=== PATIENT | female | born 1995 | race Asian ===

== ENCOUNTER 2024-12-05 07:55 | Inpatient (IN) ==
[2024-12-05] MEDS ORDERED: METHYLERGONOVINE 0.2 MG/ML VIAL IM PRN (08:04)
[2024-12-05] MEDS ORDERED: miSOPROStoL 200 MCG TABLET PR PRN (08:04)
[2024-12-05] MEDS ORDERED: LABETALOL 20 MG/4 ML SYRINGE IVP PRN ×3 (08:04)
[2024-12-05] MEDS ORDERED: TERBUTALINE 1 MG/ML VIAL SUBQ PRN (08:04)
[2024-12-05] MEDS ORDERED: OXYTOCIN 10 UNIT/ML VIAL IM PRN (08:04)
[2024-12-05] MEDS ORDERED: TRANEXAMIC ACID IN NACL 1,000 MG/100 ML BAG IV PRN (08:04)
[2024-12-05] MEDS ORDERED: miSOPROStoL 200 MCG TABLET BC PRN (08:04)
[2024-12-05] MEDS ORDERED: SODIUM CHLORIDE FLUSH 0.9% 10 ML SYRINGE IVP PRN (08:04)
[2024-12-05] MEDS ORDERED: hydrALAZINE INJ 20 MG/ML VIAL IVP PRN (08:04)
[2024-12-05] MEDS ORDERED: fentaNYL 100 MCG/2 ML VIAL IVP PRN (08:04)
[2024-12-05] MEDS ORDERED: lidocaine 1% 20 ML MDV ID PRN (08:04)
[2024-12-05] MEDS ORDERED: NIFEdipine 10 MG CAPSULE PO PRN (08:04)
[2024-12-05 09:23] LABS: BASOPHILS % (AUTO) 0.5 %; EOSINOPHILS # (AUTO) 0.2 10^3/uL (0.0-0.7); EOSINOPHILS % (AUTO) 3.2 %; HCT - HEMATOCRIT 40.5 % (37.0-47.0); HGB - HEMOGLOBIN 13.5 g/dL (12.0-16.0); LYMPHOCYTES # (AUTO) 1.4 10^3/uL (1.5-3.5); LYMPHOCYTES % (AUTO) 22.1 %; MEAN CORPUSCULAR HEMOGLOBIN 29.4 pg (27.0-31.0); MEAN CORPUSCULAR HGB CONC 33.3 g/dL (32.0-36.0); MEAN CORPUSCULAR VOLUME 88.2 fL (81.0-99.0); MEAN PLATELET VOLUME 11.7 fL (7.9-10.8); MONOCYTES # (AUTO) 0.7 10^3/uL (0.0-1.0); MONOCYTES % (AUTO) 10.6 %; NEUTROPHILS # (AUTO) 3.9 10^3/uL (1.5-6.6); NEUTROPHILS % (AUTO) 62.8 %; PLT - PLATELET COUNT 141 10^3/uL (130-450); RED BLOOD COUNT 4.59 10^6/uL (4.20-5.40); RED CELL DISTRIBUTION WIDTH 13.5 % (12.0-15.0); WHITE BLOOD COUNT 6.2 x10^3/uL (4.8-10.8)
[2024-12-05 09:36] LABS: ALBUMIN 3.6 g/dL (3.2-5.5); ALBUMIN/GLOBULIN RATIO 1.2 (1.0-2.2); BILIRUBIN,TOTAL 0.4 mg/dL (0.2-1.0); CALCIUM 9.1 mg/dL (8.5-10.3); CREATININE 0.4 mg/dL (0.6-1.3); POTASSIUM 3.9 mmol/L (3.5-4.5); TOTAL PROTEIN 6.7 g/dL (6.4-8.9)
[2024-12-05] MEDS: AMPICILLIN 2 GM in SODIUM CHLORIDE 0.9% MINIBAG 100 ML IV ONE (09:39)
[2024-12-05] MEDS: LACTATED RINGERS 1,000 ML IV PRN (09:40)
--- NOTE | 2024-12-05 09:59 | HISTORY & PHYSICAL EXAMINATION ---
Admit History Smoking Status: Never smoker Other Maternal History Other Maternal History: Patient is a 29-year-old G2, P1 at 39 weeks 6 days gestation presenting for induction of labor at term. No contractions.. She has good movement. Denies loss of fluid. No YOUNG/BV or RUQP. No vaginal bleeding. Denies nausea and vomiting. Denies urinary urgency or dysuria. All other symptoms reviewed and were negative except per HPI. Course LMP: 03/01/24 KELSY by LMP: 12/06/24 US: formal US pending. Measured 12w0d in clinic on 05/22, c/w dating by LMP. Formal US 06/04, 13w5d. 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 They live with his parents. Have a daughter, Olga born 01/2022 in [place]. this baby is a boy. likely to be named Nikos the 3rd. 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 Microcephaly - EFW 09/14: BPD 2%, HC 1%. Overall EFW 13%, offered induction at 39 weeks. Olga also with smaller head. Pre- Weight:153.4 BMI: 29.09 Blood type: O+ Antibody:Neg CBC:H/H/PLT 12.8/37.6/228 RUB:NOT immune VZV:Immune HBsAg: Neg HepC: Non reactive RPR/AB-EIA: non reactive HIV:non reactive PAP:02/13/19 - normal GC/CT: negative HSV: denies in self and partner Genetic testing: [id number] negative. AFP-Negative Covid: declines (vaccinated 2021) Flu: 05/22/24 FAS Placenta:Posterior w/o previa Cord:3VC TON:16cm wnl EFW:430g 41st%ile left ventricular focus discussed. 50gm OGCT: 125 TDAP:3/3 Breast Pump:3/3 RPR- non reactive 3rd trimester H/H 12.5/38.4 PLT 234 GBS:11/13- positive Meds/Allgy Home Medications Ambulatory Orders Medication Instructions Recorded Confirmed vits no.126-ferrous fum 1 tab PO QDAY 4 12/03/24 28 mg iron-folic acid 800 mcg tablet (Classic ) Allergies Allergies Allergy/AdvReac Type Severity Reaction Status Date / Time No Known Drug Allergies Allergy Verified 06/19/24 13:38 PFSH Active Problems All Active Problems (Updated 12/05/24 @ 10:01 by Toni Mason MD) 39 weeks gestation of (Acute) Encounter for induction of labor (Acute) Not immune to rubella (Acute) Encounter for supervision of other normal , second trimester (Acute) Surgical History Surgical History H/O wrist surgery Family History Family History (Updated 05/17/24 @ 07:04 by ANIL KERN LPN) Maternal grandmother High blood pressure Grandmother Diabetes Grandfather Diabetes Social History Social History (Updated 05/17/24 @ 07:06 by ANIL KERN LPN) Smoking Status: Never smoker Second hand tobacco smoke exposure: No Do you dip or chew tobacco?: No Do you vape?: No Living arrangement: At home Marital Status: Living Condition: With spouse/s.o. 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 Respiratory: Normal rate of respiration. No accessory muscle use, normal respiratory effort. Cardiovascular: Regular rate and rhythm Abdomen: Gravid, nontender, nondistended Extremities: Normal range of motion Neuro: Oriented x3. Normal movements Psych: Appropriate mood and affect. Normal judgment and insight SVE: 0/25/-3 FHT: FHT: 130 BPM baseline, moderate variability, accelerations present, no decelerations. Category 1 [place]: Occasional Plan for Labor Plan For Labor I expect patient to be DC'd or transferred within 96 hours.: Yes Conclusion/Plan Problem List (1) Encounter for induction of labor: Plan: Discussed risk, benefits, alternatives of induction of labor and she would like to proceed. Unfavorable cervix, but 1 previous vaginal delivery. Will start with cervical ripening with misoprostol. Epidural at patient's request, admit to L&D, admit labs. (2) 39 weeks gestation of : Plan: As above (3) Not immune to rubella: Plan: MMR Lab Results 12/05/24 09:00 12/05/24 09:00
[2024-12-05] MEDS: miSOPROStoL 100 MCG TABLET VG SCH (10:04)
--- NOTE | 2024-12-05 13:00 | PHARMACY PROGRESS NOTE ---
Best Possible Medication History Admit Date and Time: 12/05/24 0804 Home Medications Medication Instructions Recorded Confirmed Type vits no.126-ferrous fum 1 tab PO QDAY 4 12/05/24 History 28 mg iron-folic acid 800 mcg tablet (Classic ) L.acid,gasseri,plant,rham-B.animalis-cran 1 cap PO GLYNN LY 12/05/24 12/05/24 History 5 billion cell-250mg capsule (up4 Probiotics Women's) Processed by: Pharmacy (Medication reconciliation completed by [employer] [facility]) Medications reviewed in ED?: No Medication History completed: Yes Patient Interview: Completed Secondary Source(s): Insurance records [facility] Statement: As the person ultimately responsible for medication therapy, providers are able to order a medication from an existing home medication list in [facility] via the "Reconcile Routine" prior to Confirmation of that medication by wan support specialist. Such practice is discouraged except when the physician, in their clinical judgment, deems that a medical need exists for a medication without regard to previous use.
[2024-12-05] MEDS: AMPICILLIN 1 GM in SODIUM CHLORIDE 0.9% MINIBAG 100 ML IV SCH (14:14)
--- NOTE | 2024-12-05 16:56 | PROVIDER PROGRESS NOTE ---
Labor Progress Note Labor Progress Note Labor Progress Note/Additional Text: Patient doing very well, some minor cramping, but no significant complaints. Received her second dose of misoprostol, fetus is good overall with a baseline of 130 bpm, moderate variability, accelerations present, no decelerations. Cat egory 1. Mian intermittently. Continue current management.
[2024-12-05] MEDS: SODIUM CHLORIDE FLUSH 0.9% 10 ML SYRINGE IVP SCH (17:00)
[2024-12-05] MEDS ORDERED: LIDOCAINE 2%-EPI 1:100000 20 ML MDV ONE (22:25)
[2024-12-05] MEDS ORDERED: ROPIVACAINE 0.2% 200 MG/100 ML BAG EP ONE (22:25)
[2024-12-05] MEDS ORDERED: ONDANSETRON 4 MG/2 ML VIAL IVP PRN (23:22)
[2024-12-05] MEDS ORDERED: NALOXONE 0.4 MG/ML VIAL IVP PRN (23:22)
[2024-12-05] MEDS ORDERED: LACTATED RINGERS 500 ML IV ONE (23:22)
[2024-12-05] MEDS ORDERED: ePHEDrine 50 MG/ML VIAL IVP PRN (23:22)
[2024-12-05] MEDS ORDERED: diphenhydrAMINE INJ 50 MG/ML VIAL IVP PRN (23:22)
[2024-12-05] MEDS ORDERED: NALBUPHINE 10 MG/ML AMP IVP PRN (23:22)
[2024-12-05] MEDS ORDERED: ROPIVACAINE 0.2% 200 MG/100 ML BAG EP PRN (23:22)
[2024-12-05] MEDS ORDERED: METOCLOPRAMIDE 10 MG/2 ML VIAL IVP PRN (23:22)
--- NOTE | 2024-12-05 23:24 | ANESTHESIA PROCEDURE NOTE ---
Pre-Anesthesia VS, & Labs Diagnosis Surgical Diagnosis:: 39/6 weeks, IOL/ labor pain Procedure Procedure: placement of epidural catheter Vitals Vital Signs: Temp Pulse Resp BP 37.0 C 85 16 100/63 12/05/24 08:05 12/05/24 08:05 12/05/24 08:05 12/05/24 08:05 Height (in): 5 ft 1.42 in Weight (kg): 79 kg Body Mass Index: 32.4 BMI Classification: Obese NPO Last Fluid Intake: taking clears Is Patient ?: Yes Estimated Due Date:: 12/05/24 Lab Results Current Lab Results: Laboratory Tests 12/05/24 09:00: WBC 6.2, RBC 4.59, Hgb 13.5, Hct 40.5, MCV 88.2, MCH 29.4, MCHC 33.3, RDW 13.5, Plt Count 141, MPV 11.7 H, Neut # (Auto) 3.9, Lymph # (Auto) 1.4 L, [place] # (Auto) 0.7, Eos # (Auto) 0.2, Baso # (Auto) 0.0, Absolute Nucleated RBC 0.00, Nucleated RBC % 0.0, Sodium 134 L, Potassium 3.9, Chloride 104, Carbon Dioxide 23, Anion Gap 7.0, BUN 9, Creatinine 0.4 L, Estimated GFR (MDRD) 189, Glucose 94, Calcium 9.1, Total Bilirubin 0.4, AST 15, ALT 11, Alkaline Phosphatase 99, Total Protein 6.7, Albumin 3.6, Globulin 3.1, Albumin/Globulin Ratio 1.2, Blood Type O POSITIVE, Antibody Screen NEGATIVE Lab results reviewed: Yes 12/05/24 09:00 12/05/24 09:00 Meds/Allgy Home Medications Ambulatory Orders Medication Instructions Recorded Confirmed vits no.126-ferrous fum 1 tab PO QDAY 4 12/05/24 28 mg iron-folic acid 800 mcg tablet (Classic ) L.acid,gasseri,plant,rham-B.animalis-cran 1 cap PO GLYNN LY 12/05/24 12/05/24 5 billion cell-250mg capsule (up4 Probiotics Women's) Allergies Allergies Allergy/AdvReac Type Severity Reaction Status Date / Time No Known Drug Allergies Allergy Verified 06/19/24 13:38 PFSH Active Problems All Active Problems 39 weeks gestation of (Acute) Encounter for induction of labor (Acute) Not immune to rubella (Acute) Encounter for supervision of other normal , second trimester (Acute) Surgical History Surgical History H/O wrist surgery Family History Family History Maternal grandmother High blood pressure Grandmother Diabetes Grandfather Diabetes Social History Social History Smoking Status: Never smoker Second hand tobacco smoke exposure: No Do you dip or chew tobacco?: No Do you vape?: No Living arrangement: At home Marital Status: Living Condition: With spouse/s.o. 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
[2024-12-06] MEDS ORDERED: LIDOCAINE-PF 2% 10 ML AMP SUBQ ONE (00:25)
[2024-12-06] MEDS ORDERED: LIDOCAINE-MPF 2% 5 ML VIAL ONE (00:41)
--- NOTE | 2024-12-06 01:21 | PROVIDER PROGRESS NOTE ---
Labor Progress Note Labor Progress Note Labor Progress Note/Additional Text: FHT: 130 beats per baseline, moderate ability, accelerations present, early decelerations. [place]: Every 2 to 3 minutes SVE: /0 Patient rubia regularly and feel increased pressure. Epidural for pain control. Received 3 doses misoprostol, last dose at 1809. No bulging bag, but no clear rupture. Continue expectant management at this time.
[2024-12-06] MEDS: OXYTOCIN/SODIUM CHLORIDE 500 ML IV PRN (02:33)
[2024-12-06] MEDS ORDERED: SIMETHICONE CHEW 80 MG TABLET PO PRN (02:49)
[2024-12-06] MEDS ORDERED: CALCIUM CARBONATE CHEW 500 MG TABLET PO PRN (02:49)
[2024-12-06] MEDS ORDERED: ONDANSETRON 4 MG/2 ML VIAL IVP PRN (02:49)
[2024-12-06] MEDS ORDERED: WITCH HAZEL/GLYCERIN 1 PAD TOP PRN (02:49)
--- NOTE | 2024-12-06 02:53 | DELIVERY NOTE ---
Delivery Note Labor Labor: positive Augmented by ARM Delivery Method Delivery Method: positive Spontaneous vaginal delivery Cervical Ripening Method Cervical Ripening Method: positive Misoprostil Presentation Presentation: positive OA - occiput anterior Nuchal Cord Nuchal Cord: positive None Amniotic Fluid Description Amniotic Fluid Description: positive Clear Laceration Laceration: positive 2nd degree and Perineal Suture Suture Type: positive Vicryl Suture Size: positive 3-0 : positive Placed in direct skin contact with mother and [place] used Cord Cord: positive 3 vessels Placenta Placenta: positive Intact Estimated Blood Loss Estimated Blood Loss (in cc): 400 Post Delivery Events Post Delivery Events: positive No post delivery events Delivery Comments (Free Text/Narrative) Delivery Comments (Free Text/Narrative): Preoperative Diagnoses 40 weeks gestation GBS positive Postoperative Diagnoses Same Status post spontaneous vaginal delivery Delivered live fitzpatrick Summary Patient was admitted for induction of labor at 39 weeks 6 days gestation and received 3 doses misoprostol. After that, she continued to contract regularly on her own until 9 cm. She agreed to amniotomy which was performed with a moderate amount of clear fluid. She quickly progressed to complete and started pushing. Overall fetus was category 1 throughout the day, had decelerations while pushing. Delivery Summary: Patient was placed in the dorsal lithotomy position. Upon maternal pushing the head was delivered atraumatically followed by the anterior shoulder, posterior shoulder, then the remainder of the infant's body. A male infant was delivered with APGARS of 8 at 1 minute and 9 at 5 minutes. The was placed on its mother's chest . After the cord finished pulsating, the umbilical cord was clamped times two and cut. The placenta delivered intact with three vessel cord. Placenta was not sent to pathology. Thirty units of Pitocin were added to the IV fluid and allowed to run freely. Uterine massage was performed until uterus was deemed firm. Upon inspection the perineum, second-degree midline laceration was noted. This was repaired with a running suture of 3-0 Vicryl in the usual fashion. Upon re- inspection the patient was hemostatic. Uterus again massaged and found to be firm. Needle and sponge counts were correct. Patient was stable and allowed to recover in L&D room. Infant was stable and remained in room with mother. weight is pending at this time.
[2024-12-06] MEDS ORDERED: LACTATED RINGERS 1,000 ML IV SCH (03:00)
[2024-12-06] MEDS ORDERED: ACETAMINOPHEN 500 MG TABLET PO ONE (04:40)
[2024-12-06] MEDS ORDERED: IBUPROFEN 600 MG TABLET PO ONE (04:40)
[2024-12-06] MEDS: IBUPROFEN 600 MG TABLET PO SCH (04:41)
[2024-12-06] MEDS: ACETAMINOPHEN 500 MG TABLET PO SCH (04:41)
[2024-12-06] MEDS: DOCUSATE SODIUM 100 MG CAPSULE PO SCH (20:59)
[2024-12-07 04:47] VITALS: O2SAT 98
--- NOTE | 2024-12-07 08:10 | Discharge Summary ---
"Discharge Summary Admit Date: 12/05/24 Discharge Date: 12/07/24 Discharging Provider: Dr. Deidre Vu Primary Care Provider: Dr. Bessie Putnam Code Status: Attempt Resuscitation Discharge Facility Name: [facility] DIAGNOSES Admission Diagnoses: - at 39+5 wks - Suspected microcephaly Discharge Diagnoses with Status of Each Condition: Same, now s/p delivery HPI History of Present Illness: Patient is a 29-year-old G2 now P2, who was admitted at 39 weeks 6 days gestation for induction of labor at term. No contractions. She has good movement. Denies loss of fluid. No YOUNG/BV or RUQP. No vaginal bleeding. Denies nausea and vomiting. Denies urinary urgency or dysuria. All other symptoms reviewed and were negative except per HPI. Course LMP: 03/01/24 KELSY by LMP: 12/06/24 US: formal US pending. Measured 12w0d in clinic on 05/22, c/w dating by LMP. Formal US 06/04, 13w5d. 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 They live with his parents. Have a daughter, Olga born 01/2022 in [place]. this baby is a boy. likely to be named Nikos the 3rd. 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 Microcephaly - EFW 09/14: BPD 2%, HC 1%. Overall EFW 13%, offered induction at 39 weeks. Olga also with smaller head. Pre- Weight:153.4 BMI: 29.09 Blood type: O+ Antibody:Neg CBC:H/H/PLT 12.8/37.6/228 RUB:NOT immune VZV:Immune HBsAg: Neg HepC: Non reactive RPR/AB-EIA: non reactive HIV:non reactive PAP:02/13/19 - normal GC/CT: negative HSV: denies in self and partner Genetic testing: [id number] negative. AFP-Negative Covid: declines (vaccinated 2021) Flu: 05/22/24 FAS Placenta:Posterior w/o previa Cord:3VC TON:16cm wnl EFW:430g 41st%ile left ventricular focus discussed. 50gm OGCT: 125 TDAP:09/24 Breast Pump:09/24 RPR- non reactive 3rd trimester H/H 12.5/38.4 PLT 234 GBS:11/13- positive CONSULTS | PROCEDURES Consultations: None Procedures: - Spontaneous vaginal delivery - Repair of second degree laceration - Epidural - Induction of labor HOSPITAL COURSE Hospital Course: Patient admitted, and induction initiated with misoprostol. After 3 doses, she had progressed to 9 cm dilation. Shortly thereafter, she started second stage and had an uncomplicated with repair of a second degree laceration. Baby boy had Apgars 8 and 9, and EBL was 400 ml. Her course was uncomplicated, and vital signs remained stable and normal. On PPD #1, she was ambulating, tolerating a regular diet, voiding without complications, and controlling pain with oral medications. The baby was at the bedside and . The patient desired discharge home at that time. Pt is Rh pos - no indication for Rhogam. MMR vaccine was administered prior to discharge (for Rubella non-immune). ALLERGIES Allergies Allergy/AdvReac Type Severity Reaction Status Date / Time No Known Drug Allergies Allergy Verified 06/19/24 13:38 MEDICATIONS Ambulatory Orders Medication Instructions Recorded Confirmed vits no.126-ferrous fum 1 tab PO QDAY 4 12/05/24 28 mg iron-folic acid 800 mcg tablet (Classic ) L.acid,gasseri,plant,rham-B.animalis-cran 1 cap PO GLYNN LY 12/05/24 12/05/24 5 billion cell-250mg capsule (up4 Probiotics Women's) acetaminophen 500 mg tablet 1,000 mg (2 x 500 mg) PO Q 8HR #30 12/07/24 tabs docusate sodium 100 mg capsule 100 mg PO BID PRN const ipation #30 12/07/24 caps ibuprofen 600 mg tablet 600 mg PO Q6HR PRN pain #30 tabs 12/07/24 PHYSICAL EXAM AT DISCHARGE Vital Signs: Vital Signs x48h Temp Pulse Resp BP Pulse Ox 12/07/24 08:45 71 107/58 L 12/07/24 04:30 36.8 C 70 16 97/43 L 98 General Appearance: positive No acute distress and Alert Eyes Bilateral: positive Normal inspection Respiratory: positive No respiratory distress and Breath sounds nml Cardiovascular: positive Regular rate & rhythm and No murmur Abdomen: positive Non-tender and Other (Uterus firm and nontender at U-2) Skin: positive Color nml Extremities: positive Non-tender, Full ROM and Nml appearance Neurologic/Psychiatric: positive Oriented x3, Motor nml, Sensation nml and Mood/affect nml LABS 12/05/24 09:00 12/05/24 09:00 QUALITY (Female Hip Fx Only) Was patient sent home on osteoporosis medication?: No FOLLOW UP Follow Up: 2 wks and 6 wks for visits TIME SPENT Time Spent in Discharge (Minutes): 20 Discharge Plan Discharge Patient Disposition: Home, Self Care Condition: Good Medically Cleared Date:: 12/07/24 Prescriptions: New acetaminophen 500 mg Tablet 1,000 mg PO Q8HR Qty: 30 0RF docusate sodium 100 mg Capsule 100 mg PO BID PRN (Reason: constipation) Qty: 30 0RF ibuprofen 600 mg Tablet 600 mg PO Q6HR PRN (Reason: pain) Qty: 30 0RF Continued up4 Probiotics Women's 5 billion cell- 250 mg capsule 1 cap PO DAILY Classic 28 mg iron- 800 mcg tablet 1 tab PO QDAY Activity Restrictions: See below Activity Restrictions/Additional Instructions: - Pelvic rest for 6 weeks - No heavy lefting or strenuous activity/exercise for 6 weeks - No high-impact exercise for 12 weeks Diet: Regular Print Language: Citizen Of [place] Patient Instructions: Vaginal After Follow-up Care: Bessie Putnam MD [Provider Admit Priv/Credential] - (Call to schedule visits at 2 and 6 weeks)"
[2024-12-07 08:46] VITALS: BP 107/58
[2024-12-07] MEDS: MEASLES,MUMPS & RUBELLA VACC 0.5 ML VIAL SUBQ ONE (10:27)
[2024-12-07 12:07] VITALS: TEMP 98.1
--- NOTE | 2024-12-07 12:09 | Labor Flowsheet ---
Labor Flowsheet Datetime Report Generated by CPN: 12/07/2024 12:09 Datetime: 12/07/2024 08:26 VITAL SIGNS NBP Sys/Elizabeth/Mean (mmHg): 107 : 58 : 68 Pulse: 71 Datetime: 12/06/2024 03:30 Stage of : Recovery Datetime: 12/06/2024 02:40 LaborFlag: Labor Datetime: 12/06/2024 02:31 UTERINE ACTIVITY Monitor Mode: External Frequency (min): .5-1 Quality: Strong Duration (sec): 60-120 Pattern: Normal: <= 5 Contractions in 10 Minutes Resting Tone (Palpate): Relaxed ASSESSMENT A Monitor Mode: Telemetry FHR Baseline Rate : 140 Variability: Moderate 6-25 bpm Accelerations: 15X15 Decelerations: Late; Variable Datetime: 12/06/2024 02:10 Patient Care Comments: position shift Datetime: 12/06/2024 02:08 Patient Position/Activity: Right Tilt Datetime: 12/06/2024 02:04 SpO2 (%): 98 Datetime: 12/06/2024 02:03 Communication Comments: pushing with Dr Marlon Datetime: 12/06/2024 01:57 Temperature (C): 36.9 Datetime: 12/06/2024 01:53 Membrane Status: Ruptured Datetime: 12/06/2024 01:38 Membranes Ruptured Date/Time: 12/06/2024 01:54 Membranes Rupture Method: Artificial Amniotic Fluid Color: Clear Amniotic Fluid Amount: Moderate MEDICATIONS Cervical Ripening Agents: Cytotec @ Datetime: 12/06/2024 00:55 VAGINAL EXAM Dilatation (cm): 9.0 Station: 0 Exam by: DR Mason Vaginal Bleeding: Small Cervix, Consistency: Soft Cervix, Position: Midposition Datetime: 12/06/2024 00:46 Monitor Interventions for FHR: Ultrasound Adjusted Datetime: 12/06/2024 00:38 COMMUNICATION Communication: Call/Page Placed to Provider Provider Notified (Name): Dr Marlon Notification Reason: Status Update Datetime: 12/06/2024 00:34 Monitor Interventions for UA: [place] Adjusted Datetime: 12/06/2024 00:28 Anesthesia Comments: at bedside Datetime: 12/06/2024 00:27 Effacement (%): 80 Datetime: 12/06/2024 00:00 Vital Sign Comments: bp reading low because on upper arm while pt lateral. pt asymptomatic Datetime: 12/05/2024 23:32 I/O Interventions: [place] Cath Inserted Datetime: 12/05/2024 23:00 FHR Baseline Changes: No Baseline Change Category: Category I Datetime: 12/05/2024 22:49 ANESTHESIA Epidural Procedure: Test Dose Datetime: 12/05/2024 22:34 PROCEDURE TIME OUT Procedure Verify: Correct Patient Position Datetime: 12/05/2024 22:22 Medication Comments: nitrous oxide education done on safe use . nitrous in use now Datetime: 12/05/2024 21:42 Contraction Comments: contraction rated 5 or 6 out of 10 per pt Datetime: 12/05/2024 21:26 Membrane Comments: light amount of bright red bleeding just started at this time. pt felt something trickling down leg. got up to bathroom and put pad on. will monitor closely. abdomen relaxing inbetween contractions but contraction frequency and intensity now begiinning to increase Datetime: 12/05/2024 19:09 Respirations: 18 Temperature Route: Oral Datetime: 12/05/2024 18:10 TEACHING Instructional Method: Verbal; Verbalized Understanding Plan of Care: Plan of Care Discussed; Induction Labor/Induction: Induction Related: Maternal Physical Changes Datetime: 12/05/2024 17:34 Comments: maternal HR recorded due to mother position Datetime: 12/05/2024 15:04 PAIN Pain Scale: 0 Pain Presence: None/Denies Datetime: 12/05/2024 12:59 Pain Assessment Comments: resting quietly, taking a nap Datetime: 12/05/2024 11:15 PATIENT CARE Oxygen Method: Room Air
== END 2024-12-07 11:50 | disposition home or self-care (01) | DRG 807 ==
LOC: WFO 07:55 → FBP 07:58
PROVIDERS: ADMIT Obstetrics & Gynecology; ATTEND Obstetrics & Gynecology
DX: Z3A.40 40 weeks gestation of pregnancy; Z23 Encounter for immunization; Z37.0 Single live birth; O35.0 Maternal care for (suspected) central nervous system malformation in fetus; O70.1 Second degree perineal laceration during delivery; O76 Abnormality in fetal heart rate and rhythm complicating labor and delivery; O99.824 Streptococcus B carrier state complicating childbirth